=== PATIENT | male | born 1965 | race Caucasian/White ===

== ENCOUNTER 2024-11-17 11:33 | Emergency (ER) | payer OTHER ==
[~2024-11-17] VITALS: Ht 180.3 cm; Wt 99.8 kg
[2024-11-17] MEDS ORDERED: LISINOPRIL20 MG PO (11:50)
[2024-11-17] MEDS ORDERED: ZESTRIL20 MG PO (12:13)
[2024-11-17] MEDS ORDERED: LISINOPRIL 20 MG TAB PO ONE (12:15)
== END 2024-11-17 16:49 | disposition home or self-care (01) ==
LOC: ED 11:33
DX: I10 Essential (primary) hypertension (principal)